=== PATIENT | male | born 1990 | race Two or more races ===

== ENCOUNTER 2018-02-02 12:14 | Inpatient (IN) | payer MEDICAID ==
[~2018-02-02] VITALS: Ht 167.6 cm; Wt 103.1 kg
[2018-02-02 13:33] LABS: Urine Bacteria NONE SEEN /hpf (None Seen); Urine Blood Negative /uL (Negative); Urine Mucus FEW (None Seen); Urine Specific Gravity 1.029 (1.001-1.035); Urine WBC <1 /hpf (0 - 3)
[2018-02-02] MEDS ORDERED: SODIUM CHLORIDE 0.9% 500 ML IVB ONE (14:21)
[2018-02-02] MEDS ORDERED: cefTRIAXone SOD 1,000 MG VL IM ONE (14:30)
[2018-02-02] MEDS ORDERED: NALBUPHINE HCL 10 MG/1ml INJECTION IV ONE (14:30)
[2018-02-02] MEDS ORDERED: ONDANSETRON HCL 4 MG/2 ML VIAL IV ONE (14:30)
[2018-02-02 14:33] LABS: Basophils # (auto) 0 uL; Basophils % (auto) 0.2 % (0.0-2.0); Eosinophils # (auto) 0 uL; Eosinophils % (auto) 0.1 % (0.0-7.0); Hematocrit 46.6 % (41.0-53.0); Hemoglobin 16.3 g/dL (13.5-17.5); Lymphocytes % (auto) 9.5 % (10.0-50.0); Mean Corpuscular Hemoglobin 30.3 pg (28.0-32.0); Mean Corpuscular Hgb Conc. 35.1 g/dL (32.0-36.0); Mean Corpuscular Volume 86.3 fL (80.0-100.0); Monocytes # (auto) 0.5 uL; Monocytes % (auto) 4.2 % (0.0-12.0); Neutrophils # (auto) 9.2 uL; Nucleated Red Blood Cells % 0.2 %; Platelet Count (auto) 231 10^3/uL (140-450); Red Cell Distribution Width 13.5 % (11.8-14.3); White Blood Cell 10.8 10^3/uL (4.4-10.8)
[2018-02-02 14:58] LABS: INR 0.96 (0.9-1.15); Prothrombin Time 10.3 sec (9.27-12.13)
[2018-02-02] MEDS ORDERED: cefTRIAXone 1GM/10ml IVPUSH 10 ML IV ONE ×2 (15:00→15:12)
[2018-02-02] MEDS ORDERED: MORPHINE SULFATE 8mg/ml INJ SDV IV PRN ×2 (15:00)
[2018-02-02] MEDS ORDERED: MORPHINE SULF(PF) 0.5MG/ML 10ML VIAL IV PRN (15:00)
[2018-02-02] MEDS ORDERED: LORazepam 2MG/ML-1ML VIAL IV PRN (15:00)
[2018-02-02] MEDS ORDERED: NITROGLYCERIN 0.4 MG SL TAB SL PRN (15:00)
[2018-02-02 15:01] LABS: Albumin 4.8 g/dL (3.4-5.0); BUN/Creatinine Ratio 8.4; Bilirubin, Total 0.5 mg/dL (0.2-1.0); Calcium 9.4 mg/dL (8.5-10.1); Potassium 4.5 mmol/L (3.5-5.1)
[2018-02-02 15:11] LABS: Magnesium 2.1 mg/dL (1.6-2.6)
[2018-02-02] MEDS: SODIUM CHLORIDE 0.9% 1,000 ML IV SCH (16:59)
[2018-02-02] MEDS ORDERED: metroNIDAZOLE 500MG/100ML 100 ML IV ONE (17:30)
[2018-02-02 18:05] VITALS: BP_SYST 116; BP_SYST 136; BP_DIAS 74; BP_DIAS 78
[2018-02-02] MEDS: NALBUPHINE HCL 10 MG/1ml INJECTION IV PRN (20:50)
[2018-02-02 21:33] VITALS: BP 120/74
[2018-02-02] MEDS: PROMETHAZINE HCL 25 MG/ML 1ML IV PRN (22:08)
[2018-02-03] MEDS: SODIUM CHLORIDE 0.9% 1,000 ML IV SCH ×3 (00:57→21:26)
[2018-02-03 05:17] VITALS: BP 112/67
[2018-02-03] MEDS: metroNIDAZOLE 500MG/100ML 100 ML IV SCH ×5 (06:10→23:31)
[2018-02-03] MEDS: NALBUPHINE HCL 10 MG/1ml INJECTION IV PRN ×3 (06:25→16:47)
[2018-02-03] MEDS: PROMETHAZINE HCL 25 MG/ML 1ML IV PRN ×2 (06:26→16:58)
[2018-02-03] MEDS ORDERED: MIDAZOLAM HCL 1MG/1ML-2 ML VIAL ONE (07:40)
[2018-02-03] MEDS ORDERED: fentaNYL CITRATE 100 MCG/2 ML VL ONE ×2 (07:40→08:16)
[2018-02-03] MEDS ORDERED: PROPOFOL 10 MG/ML 20 ML IV ONE (07:41)
[2018-02-03] MEDS ORDERED: ROCURONIUM 10MG/ML 10ML VIAL IV ONE (07:41)
[2018-02-03 08:00] VITALS: BP 103/60
[2018-02-03] MEDS ORDERED: POVIDONE IODINE 10 % TOPICAL OINT 30GM TOP ONE (08:31)
[2018-02-03 08:41] VITALS: BP 118/72
[2018-02-03] MEDS ORDERED: LABETALOL HCL 5 MG/ML ML 20ML VIAL IV ONE (08:58)
[2018-02-03] MEDS ORDERED: NEOSTIGMINE 1 MG/ML INJ (10mg/10ML VIAL) ONE (08:58)
[2018-02-03] MEDS ORDERED: GLYCOPYRROLATE 0.2 MG/ML 1ML VIAL ONE (08:58)
[2018-02-03] MEDS ORDERED: ONDANSETRON HCL 4 MG/2 ML VIAL IV ONE (09:00)
[2018-02-03] MEDS ORDERED: hydrALAZINE HCL 20 MG/ML VL IV PRN (09:00)
[2018-02-03] MEDS ORDERED: ePHEDrine SULFATE 50 MG/ML AMP IV PRN (09:00)
[2018-02-03] MEDS: fentaNYL CITRATE 100 MCG/2 ML VL IV PRN ×2 (09:11→09:21)
[2018-02-03] MEDS: cefTRIAXone 1GM/10ml IVPUSH 10 ML IV SCH (10:37)
[2018-02-03 12:40] VITALS: BP 103/60
[2018-02-03 16:38] VITALS: BP 98/58
[2018-02-03] MEDS: HYDROcodone-ACET 5/325MG TAB PO PRN (19:45)
[2018-02-03 22:00] VITALS: BP 117/39
[2018-02-04] MEDS: PROMETHAZINE HCL 25 MG/ML 1ML IV PRN ×3 (00:44→18:02)
[2018-02-04] MEDS: NALBUPHINE HCL 10 MG/1ml INJECTION IV PRN ×3 (00:44→18:02)
[2018-02-04 05:00] VITALS: BP 117/58
[2018-02-04] MEDS: metroNIDAZOLE 500MG/100ML 100 ML IV SCH ×3 (05:41→18:01)
[2018-02-04] MEDS: SODIUM CHLORIDE 0.9% 1,000 ML IV SCH ×2 (05:50→18:10)
[2018-02-04 06:12] LABS: Basophils # (auto) 0 uL; Basophils % (auto) 0.4 % (0.0-2.0); Eosinophils # (auto) 0 uL; Eosinophils % (auto) 0.4 % (0.0-7.0); Hematocrit 39.1 % (41.0-53.0); Hemoglobin 13.5 g/dL (13.5-17.5); Lymphocytes % (auto) 26.1 % (10.0-50.0); Mean Corpuscular Hemoglobin 30.2 pg (28.0-32.0); Mean Corpuscular Hgb Conc. 34.5 g/dL (32.0-36.0); Mean Corpuscular Volume 87.4 fL (80.0-100.0); Monocytes # (auto) 0.6 uL; Monocytes % (auto) 7.4 % (0.0-12.0); Neutrophils # (auto) 5.1 uL; Neutrophils % (auto) 65.7 % (37.0-80.0); Platelet Count (auto) 210 10^3/uL (140-450); Red Blood Cells 4.48 10^6/uL (4.5-5.90); Red Cell Distribution Width 13.9 % (11.8-14.3); White Blood Cell 7.7 10^3/uL (4.4-10.8)
[2018-02-04 06:34] LABS: Potassium 4.4 mmol/L (3.5-5.1)
[2018-02-04 06:42] LABS: Albumin 3.4 g/dL (3.4-5.0); BUN/Creatinine Ratio 8.3; Calcium 8.2 mg/dL (8.5-10.1)
[2018-02-04 06:50] LABS: Bilirubin, Total 0.6 mg/dL (0.2-1.0)
[2018-02-04 08:00] VITALS: BP 113/74
[2018-02-04 08:24] VITALS: BP 113/74
[2018-02-04] MEDS: cefTRIAXone 1GM/10ml IVPUSH 10 ML IV SCH (08:42)
[2018-02-04 12:18] VITALS: BP 119/74
[2018-02-04] MEDS: HYDROcodone-ACET 5/325MG TAB PO PRN (12:26)
[2018-02-04 17:13] VITALS: BP 125/73
[2018-02-04 22:00] VITALS: BP 125/81
[2018-02-05] MEDS: metroNIDAZOLE 500MG/100ML 100 ML IV SCH ×3 (00:33→12:00)
[2018-02-05] MEDS: NALBUPHINE HCL 10 MG/1ml INJECTION IV PRN (04:36)
[2018-02-05] MEDS: PROMETHAZINE HCL 25 MG/ML 1ML IV PRN (04:36)
[2018-02-05] MEDS: SODIUM CHLORIDE 0.9% 1,000 ML IV SCH (04:37)
[2018-02-05 05:06] VITALS: BP 134/79
[2018-02-05 08:00] VITALS: BP 134/79
[2018-02-05 08:24] LABS: Basophils # (auto) 0 uL; Basophils % (auto) 0.6 % (0.0-2.0); Eosinophils # (auto) 0.2 uL; Hematocrit 41.4 % (41.0-53.0); Lymphocytes # (auto) 2.1 uL; Lymphocytes % (auto) 32.1 % (10.0-50.0); Mean Corpuscular Hemoglobin 29.6 pg (28.0-32.0); Mean Corpuscular Hgb Conc. 33.9 g/dL (32.0-36.0); Mean Corpuscular Volume 87.4 fL (80.0-100.0); Monocytes # (auto) 0.4 uL; Monocytes % (auto) 6.4 % (0.0-12.0); Neutrophils # (auto) 3.8 uL; Neutrophils % (auto) 57.9 % (37.0-80.0); Platelet Count (auto) 223 10^3/uL (140-450); Red Blood Cells 4.73 10^6/uL (4.5-5.90); Red Cell Distribution Width 13.3 % (11.8-14.3); White Blood Cell 6.7 10^3/uL (4.4-10.8)
[2018-02-05 08:39] LABS: BUN/Creatinine Ratio 6.6; Calcium 8.6 mg/dL (8.5-10.1); Potassium 3.5 mmol/L (3.5-5.1)
[2018-02-05 09:00] VITALS: BP 113/68
[2018-02-05] MEDS: cefTRIAXone 1GM/10ml IVPUSH 10 ML IV SCH (09:10)
[2018-02-05 11:17] VITALS: BP 113/68
[2018-02-05 12:34] VITALS: BP 128/72
[2018-02-08 12:43] LABS: Hepatitis B Surface Antibody Positive
[2018-02-08 12:49] LABS: Hepatitis B Surface Antigen Negative (Negative)
[2018-02-08 13:10] LABS: Hepatitis A Total Antibody Positive
[2018-02-08 13:49] LABS: Hepatitis B Core Total AB Negative
[2018-02-10 13:10] LABS: Hepatitis C Antibody Negative (Negative)
== END 2018-02-05 13:11 | disposition home or self-care (01) | DRG 225 ==
LOC: ER 12:18 → TELE 12:19 → TELE-WESTW 18:16 → WEST WING 02-03 14:44
PROVIDERS: ADMIT Internal Medicine; ATTEND Internal Medicine
PROC: 0DTJ4ZZ Resection of Appendix, Percutaneous Endoscopic Approach (ICD-10-PCS; principal; 2018-02-03 07:35)
DX: K35.80 Unspecified acute appendicitis (principal); K76.0 Fatty (change of) liver, not elsewhere classified; E66.9 Obesity, unspecified; Z68.36 Body mass index [BMI] 36.0-36.9, adult
CPT/HCPCS: 36415; 71045; 74176; 76705; 80048; 80053; 81001; 83690; 83735; 85025; 85610; 85730; 86704; 86706; 86708; 86803; 86850; 86900; 86901; 87340; 93005; 94761; 96361; 96372; 96374; 96375; J2250; J2405; J2704; J3490